=== PATIENT | female | born 1945 | race Caucasian/White ===

== ENCOUNTER 2018-06-06 17:33 | Inpatient (IN) | payer OTHER ==
[~2018-06-06] VITALS: Ht 157.5 cm; Wt 61.1 kg
--- NOTE | ~2018-06-06 | HC ---
[facility] [place] [address] CONSULTATION Name: KAYLEEN US MARY Room #: 210-P ADM IN M.R.#: [id number] Admission: 06/06/18 ������������������ Attend Phys: Bulmaro Estrada MD Discharge: ������������������ Date of : 41 Report #: [id number] THIS REPORT FOR: //name// CC: FAM unknown Bulmaro Estrada DATE OF SERVICE: 06/07/2018 NEPHROLOGY CONSULTATION REASON FOR CONSULTATION: Rise in creatinine. HISTORY OF PRESENT ILLNESS: This 72-year-old patient has a history of serendipitously discovered left renal atrophy with apparent prior documentation of a normal left kidney previously. She has had worsening and difficult hypertension, volume overload and rising serum creatinine, which was 1.3 in 02/2017. It has gradually risen up to 3.1 in the office and 3.7 here today. She saw her product designer earlier this week. With the rise in creatinine, her torsemide was decreased, she developed increasing shortness of breath, orthopnea, and chest tightness. She came to the Emergency Room, was found to have congestive heart failure and accelerated hypertension. This was treated successfully and acutely, but her creatinine criss from 2.9 to 3.7 overnight with lowering of blood pressure from 232/[address] down to 133/64 currently. This morning, she is breathing much more comfortably. She has been suffering some from headache as well. HOME MEDICATIONS: As listed include lisinopril 40 mg daily, torsemide 20 mg daily, metoprolol 25 mg at bedtime, aspirin 81 mg daily. PAST MEDICAL HISTORY: Is that of a severely fractured right ankle, which required surgery and hardware. No other surgeries. SOCIAL HISTORY: No cigarettes. No alcohol. 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 REVIEW OF SYSTEMS: GENERAL: She has been feeling poorly. EYES: Vision has been okay. ENT: Hearing okay. Swallows okay. ENDOCRINE: No diabetes or thyroid disease. RESPIRATORY: She has had the progressive shortness of air as mentioned. CARDIAC: She has had the chest tightness. No history of cardiac disease or palpitations. GASTROINTESTINAL: No nausea, vomiting or diarrhea. GENITOURINARY: No dysuria, hematuria or renal stones. MUSCULOSKELETAL: She has had quite a bit of trouble with low back pain and has [facility] [address] [place] [address] CONSULTATION Name: KAYLEEN US MARY Room #: 210-P [facility] IN .R.#: [id number] Admission: 06/06/18 ������������������ Attend Phys: Bulmaro Estrada MD Discharge: ������������������ Date of : 43 Report #: [id number] not been undergoing physical therapy for that. NEUROLOGIC: She has had headaches of late. No seizure, syncope or stroke. She has had a little bit of tingling in her toes. PSYCHIATRIC: No depression or anxiety. PHYSICAL EXAMINATION: GENERAL: This is a reasonably comfortable appearing patient giving a reasonably good history. General appearance is relatively comfortable. SKIN: Shows no skin lesions. SKELETAL: Shows no abnormalities of the joints. HEENT: Extraocular movements are full. Vision intact. Hearing intact. Mucous membranes are moist. Tongue, buccal mucosa are benign. NECK: Supple without carotid bruits. CHEST: Clear to auscultation this morning. HEART: Regular without murmurs, gallops or rubs. ABDOMEN: Soft and nontender. No bruits are heard. EXTREMITIES: Show a left femoral bruit. NEUROLOGIC: Grossly intact. LABORATORY AND DIAGNOSTIC DATA: The hemoglobin is 9.5, platelets 216. Sodium 135, potassium 5.7, chloride 101, bicarbonate 25, creatinine 3.7, BUN 90. ASSESSMENT: 1. Acute on chronic kidney disease. I suspect she likely has progressive renal artery stenosis to a solitary right kidney and that the only effective treatment will be to do limited angiogram with stent to that kidney and we will try to make arrangements for such. Blood pressure is currently a bit over controlled, but with her congestive heart failure somewhat appropriate and she has been diuresed down. We will adjust her medications a bit. At this time, likely the blood pressure will need to come up just a little bit anyway. 2. Acute on chronic renal failure, likely due to the progressive renal artery stenosis. 3. Flash pulmonary edema likely due to volume overload and accelerated hypertension, but converting enzyme inhibitors will need to be withheld if she indeed does have renal artery stenosis. 4. Low back syndrome. ��������������������������������������������� ���������������������������������������� By: ��������������������������������������������� 0827 1057 Sami Us MD /nt
[2018-06-06 17:34] VITALS: BP 234/128
[2018-06-06 18:01] LABS: ABSOLUTE NEUTROPHILS 9.2 thou/uL (1.4-8.2); BASOPHILS 0.3 % (0.0-2.0); EOSINOPHILS 2.8 % (0.0-3.0); HEMATOCRIT 31.9 % (37.0-47.0); LYMPHOCYTES 8.9 % (24.0-44.0); MCH 31.2 pg (26.0-34.0); MCHC 34.6 g/dL (28.0-37.0); MCV 90.3 fL (80.0-100.0); MONOCYTES 4.1 % (1.0-8.0); PLATELET COUNT 254 thou/uL (150-400); POLYS 83.9 % (36.0-66.0); RBC 3.53 mil/uL (4.20-5.00); RDW 14.5 % (10.5-14.5)
[2018-06-06 18:09] LABS: ANION GAP 10 mmol/L (7-16); BUN 85 mg/dL (7-18); CALCIUM 9.4 mg/dL (8.5-10.1); CHLORIDE 100 mmol/L (98-107); CO2 24 mmol/L (21-32); CREATININE 2.9 mg/dL (0.6-1.0); GLUCOSE 160 mg/dL (74-106); POTASSIUM 4.4 mmol/L (3.5-5.1); SODIUM 134 mmol/L (136-145)
[2018-06-06 18:15] LABS: APTT 24.2 Seconds (24.5-32.8); PROTIME 10.4 Seconds (9.3-11.4)
[2018-06-06 18:18] VITALS: BP 213/114
[2018-06-06 18:24] LABS: AMP/METHAMP Negative (Negative); BARBITURATES Negative (Negative); BENZODIAZEPINES Negative (Negative); COCAINE Negative (Negative); METHADONE Negative (Negative); OPIATES Negative (Negative); PCP Negative (Negative)
[2018-06-06 18:25] LABS: ALBUMIN 3.5 g/dL (3.4-5.0); MAGNESIUM 2.1 mg/dL (1.8-2.4); SGOT 15 U/L (15-37); SGPT 13 U/L (30-65); TOTAL BILIRUBIN 0.4 mg/dL (<0.1-1.0); TOTAL PROTEIN 6.7 g/dL (6.4-8.2); TROPONIN-I <0.06 ng/mL (<0.06)
[2018-06-06 19:21] VITALS: BP 190/75
[2018-06-06] MEDS ORDERED: ASPIR 8181 MG PO (19:24)
[2018-06-06] MEDS ORDERED: LISINOPRIL40 MG PO (19:25)
[2018-06-06] MEDS ORDERED: TORSEMIDE10 MG PO (19:26)
[2018-06-06] MEDS ORDERED: BUFFERED ASPIR325 MG PO (19:28)
[2018-06-06] MEDS ORDERED: KAPSPARGO SPRIN25 MG PO (19:30)
[2018-06-07] VITALS (8 sets, daily range): BP systolic 133–192; BP diastolic 64–86
--- NOTE | 2018-06-07 02:58 | NUR ---
PT. ARRIVED AT FLOOR AT SHIFT CHANGE; C/O GENERALIZED PAIN; PHYSICIAN AT BEDSIDE DURING BED SIDE REPORT; DURING ADMISSION ASSESSMENT; PT C/O HEADACHE; SHAKINESS OVER BODY; ST "I FEEL LIKE I AM GOING TO "; CRYING; ANXIOUS; C/O L. SIDE CHEST PAIN, ARM AND LEG; ST. DOES NOT KNOW HOW TO DESCRIBE THE PAIN; SBP ON THE 190'S; CLIENT ADVOCATE NOTIFIED; ORDERS RECEIVED; HYDROLYZED GIVEN; PT. REMAINED SAYING "I DO NOT WANT TO "; ASKED THE REASON THAT MAKES HER THING SHE MIGHT ; ST "I DO NOT KNOW"; FRIEND AT THE BED SIDE ST. "SHE [PT] USUALLY THINKS THE SAME AT HOME; ASKED IF NEED SOMETHING TO SLEEP; ST. "NO I DO NOT WANT TO SLEEP, I WANT TO STAY AWAKE ALL NIGHT"; ASKED IF NEED SOMETHING TO RELAX; ST. "I DO NOT WANT TO TAKE MORE MEDICATION"; ADMISSION ASSESSMENT FINISHED IT; EDUCATED ABOUT THE BENEFITS OF RESTIND DURING THE NIGHT; SBP RE-ASSESSED AROUND 2200; SBP 185; PT. REQUESTED MEDICATION TO HELP RELAX; CLIENT ADVOCATE NOTIFIED; ORDERS RECEIVED; MEDICATION GIVEN; RE-ASSESSMENT SBP 158; PT. SLEEPING; PER FRIEND AT BED SIDE PT HAS BEING RESTING; EXPLAINED TO CALL IF SOMETHING IS NEEDED; FRIEND ST. UNDERSTANDING; TROPONIN 0.15; CLIENT ADVOCATE NOTIFIED; ORDERS RECEIVED; ASSESSMENT CHARGED; FOLLOWING POC; MONITORING; WILL PASS ON REPORT.
[2018-06-07 05:46] LABS: HEMATOCRIT 28.2 % (37.0-47.0); HEMOGLOBIN 9.5 gm/dL (12.0-15.0); MCH 30.8 pg (26.0-34.0); MCHC 33.8 g/dL (28.0-37.0); MCV 91.1 fL (80.0-100.0); RBC 3.09 mil/uL (4.20-5.00); RDW 14.1 % (10.5-14.5); WBC 5.5 thou/uL (4.0-11.0)
[2018-06-07 06:01] LABS: CALCIUM 9.1 mg/dL (8.5-10.1); CREATININE 3.7 mg/dL (0.6-1.0); MAGNESIUM 2.4 mg/dL (1.8-2.4); TROPONIN-I 0.2 ng/mL (<0.06)
[2018-06-07 06:08] LABS: POTASSIUM 5.7 mmol/L (3.5-5.1)
--- NOTE | 2018-06-07 10:51 | EKG ---
[address] [address] ELECTROCARDIOGRAM REPORT Name: ABEBAKAYLEEN Room #: 210-P ADM IN M.R.#: [id number] ������������������ Admission: 06/06/18 ������������������ Attend Phys: Bulmaro Estrada MD Discharge: ������������������ Date of : 41 Report #: [id number] ����������������������������������������������������������������� [id number] THIS REPORT FOR: //name// [facility] ED Test Date: 2018-06-06 Test Time: 17:30:42 Pat Name: KAYLEEN US Department: Room: 210 Gender: F Sample Tester: RUTH : 1945 Requested By: Vince Middleton Order Number: [id number] MD: Memo Soto Measurements Intervals [place] Rate: 106 P: 65 HI: 169 QRS: -3 QRSD: 96 T: 121 QT: 356 QTc: 473 Interpretive Statements Sinus tachycardia Probable left atrial enlargement LVH with secondary repolarization abnormality Inferior infarct, old Anterior infarct, old No previous ECG available for comparison Electronically Signed On 06-07-2018 10:51:07 CDT by Memo Soto [email or web address] ��������������������������������������������� <ELECTRONICALLY SIGNED> ���������������������������������������� By: Memo Soto MD ��������������������������������������������� 06/07/18 1051 1730 1730 MD BASIA Anderson
--- NOTE | 2018-06-07 10:51 | EKG ---
[address] [address] ELECTROCARDIOGRAM REPORT Name: ABEBAKAYLEEN Room #: 210-P ADM IN M.R.#: [id number] ������������������ Admission: 06/06/18 ������������������ Attend Phys: Bulmaro Estrada MD Discharge: ������������������ Date of : 41 Report #: [id number] ����������������������������������������������������������������� [id number] THIS REPORT FOR: //name// [facility] ED Test Date: 2018-06-06 Test Time: 17:54:29 Pat Name: KAYLEEN US Department: Room: 210 P Gender: F Supervisor Delivery Department: RUTH : 1945 Requested By: Nidhi Tomlinson Order Number: [id number] MD: Memo Soto Measurements Intervals [place] Rate: 81 P: 65 WI: 188 QRS: -9 QRSD: 96 T: 101 QT: 394 QTc: 458 Interpretive Statements Sinus rhythm Probable left atrial enlargement LVH with secondary repolarization abnormality Inferior infarct, old Anterior infarct, old No previous ECG available for comparison Electronically Signed On 06-07-2018 10:51:20 CDT by Memo Soto [email or web address] ��������������������������������������������� <ELECTRONICALLY SIGNED> ���������������������������������������� By: Memo Soto MD ��������������������������������������������� 06/07/18 1051 1754 175 Memo Soto MD /[facility]
--- NOTE | 2018-06-07 10:52 | EKG ---
[address] [address] ELECTROCARDIOGRAM REPORT Name: KAYLEEN US MARY Room #: 210-P ADM IN M.R.#: [id number] ������������������ Admission: 06/06/18 ������������������ Attend Phys: Bulmaro Estrada MD Discharge: ������������������ Date of : 41 Report #: [id number] ����������������������������������������������������������������� [id number] THIS REPORT FOR: //name// [facility] Test Date: 2018-06-07 Test Time: 06:33:01 Pat Name: KAYLEEN US Department: Room: 210 P Gender: F Director Trial: : 1945 Requested By: Bulmaro Estrada Order Number: [id number] MD: Memo Soto Measurements Intervals [place] Rate: 76 P: 60 [place]: 174 QRS: 3 QRSD: 95 T: 94 QT: 410 QTc: 462 Interpretive Statements Sinus rhythm Anterior infarct, old No previous ECG available for comparison Electronically Signed On 06-07-2018 10:52:34 CDT by Memo Soto [email or web address] ��������������������������������������������� <ELECTRONICALLY SIGNED> ���������������������������������������� By: Memo Soto MD ��������������������������������������������� 06/07/18 1052 0633 0633 Memo Soto MD /EPI
[2018-06-08 04:40] LABS: PHOSPHORUS 5.1 mg/dL (2.5-4.9); POTASSIUM 5.3 mmol/L (3.5-5.1)
[2018-06-08 04:41] LABS: HEMATOCRIT 25.7 % (37.0-47.0); HEMOGLOBIN 8.8 gm/dL (12.0-15.0); MCH 31.2 pg (26.0-34.0); MCHC 34.3 g/dL (28.0-37.0); MCV 90.9 fL (80.0-100.0); RBC 2.82 mil/uL (4.20-5.00); WBC 5.6 thou/uL (4.0-11.0)
[2018-06-08 04:45] VITALS: BP 184/86
[2018-06-08 08:00] VITALS: BP 200/86
--- NOTE | 2018-06-08 08:31 | NUR ---
ASSESSMENTS CHARTED. PATIENT IS SCHEDULED FOR AN ARTERIOGRAM RENAL STENT TODAY.
[2018-06-08 12:00] VITALS: BP 173/75
--- NOTE | 2018-06-08 12:39 | 2DMMODE ---
[facility] [address] [place] [address] 2 D/M-MODE ECHOCARDIOGRAM Name: ABEBAKAYLEEN MARY Room #: 210-P ADM IN .R.#: [id number] ������������� Admission: 06/06/18 ������������� Attend Phys: Bulmaro Estrada MD Discharge: ��� ������������� ��� Date of : 41 Date of Service: 06/08/18 1239 �� Report #: [id number] �������� ��������������������������������������������[id number] THIS REPORT FOR: //name// APPROVED REPORT Study performed: 06/08/2018 11:34:23 EXAM: Comprehensive 2D, Doppler, and color-flow Echocardiogram Patient Location: In-Patient Room #: 210 Status: routine BSA: 1.69 HR: 73 bpm BP: 200/86 mmHg Rhythm: NSR Other Information Study Quality: Adequate Indications Congestive Heart Failure CAD Hypertension/HDD 2D Dimensions RVDd: 38.18 mm IVSd: 13.82 (7-11mm) LVOT Diam: 18.76 (18-24mm) LVDd: 34.68 mm PWd: 15.23 (7-11mm) Ascending Ao: 27.03 (22-36mm) LVDs: 20.08 (25-40mm) Aortic Root: 30.83 mm IVC: 21.00 mm Volumes Left Atrial Volume (Systole) Single Plane 4CH: 68.52 mL Single Plane 2CH: 41.17 mL LA ESV Index: 35.00 mL/m2 Aortic Valve AoV Peak Carmelo.: 1.42 m/s AO Peak Gr.: 8.08 mmHg Mitral Valve E/A Ratio: 0.8 MV Decel. Time: 221.63 ms MV E Max Carmelo.: 1.31 m/s [facility] [address] [place] [address] 2 D/M-MODE ECHOCARDIOGRAM Name: KAYLEEN US Room #: 210-P ADM IN ..#: [id number] ������������� Admission: 06/06/18 ������������� Attend Phys: Bulmaro Estrada MD Discharge: ��� ������������� ��� Date of : 41 Date of Service: 06/08/18 1239 �� Report #: [id number] �������� ��������������������������������������������[id number] MV A Carmelo.: 1.61 m/s MV PHT: 64.27 ms IVRT: 86.51 ms Pulmonary Valve PV Peak Carmelo.: 0.83 m/s PV Peak Gr.: 2.77 mmHg Pulmonary Vein P Vein S: 0.58 m/s P Vein A: 0.26 m/s P Vein D: 0.38 m/s P Vein A Dur.: 121.1 msec P Vein S/D Ratio: 1.53 Tricuspid Valve TR Peak Carmelo.: 3.23 m/s RAP Estimate: 5.00 mmHg TR Peak Gr.: 41.79 mmHg PA Pressure: 47.00 mmHg Left Ventricle The left ventricle is normal size. Moderate concentric left ventricular hypertrophy. The left ventricular systolic function is normal. The left ventricular ejection fraction is within the normal range. LVEF is 60-65%. Mild diastolic dysfunction is present (impaired relaxation pattern). Right Ventricle The right ventricle is normal size. The right ventricular systolic function is normal. Atria Left atrium is mildly dilated. Right atrium is mildly dilated. Aortic Valve Aortic valve is mildly calcified. Trace to mild aortic regurgitation. There is no aortic valvular stenosis. Mitral Valve Mild mitral annular calcification. Moderate to severe mitral regurgitation with an eccetric jet. No evidence of mitral valve stenosis. Tricuspid Valve The tricuspid valve is normal in structure. Mild tricuspid regurgitation. PAP is estimated at 47 mmHg. Pulmonic Valve [facility] [address] [place] [address] 2 D/M-MODE ECHOCARDIOGRAM Name: KAYLEEN US [facility] Room #: 210-P ADM IN M.R.#: [id number] ������������� Admission: 06/06/18 ������������� Attend Phys: Bulmaro Estrada MD Discharge: ��� ������������� ��� Date of : 41 Date of Service: 06/08/18 1239 �� Report #: [id number] �������� ��������������������������������������������[id number] Pulmonic valve is not well visualized. Great Vessels The aortic root is normal in size. IVC is upper limits of normal in size and collapses >50% with inspiration. Pericardium There is no pericardial effusion. <Conclusion> The left ventricle is normal size. LVEF is 60-65%. Left atrium is mildly dilated. Right atrium is mildly dilated. Aortic valve is mildly calcified. Trace to mild aortic regurgitation. There is no aortic valvular stenosis. Mild mitral annular calcification. Moderate to severe mitral regurgitation with an eccetric jet. The tricuspid valve is normal in structure. Mild tricuspid regurgitation. PAP is estimated at 47 mmHg. Pulmonic valve is not well visualized. There is no pericardial effusion. ��������������������������������������������� <ELECTRONICALLY SIGNED> ���������������������������������������� By: Jordan Stoddard MD ��������������������������������������������� 06/08/18 1239 1239 1239 Jordan Stoddard MD /INF
--- NOTE | 2018-06-08 15:12 | NUR ---
REMAINS NSR, BP REMAIN 170-200/75-80, PT GIVEN PRN IV HYDRALAZINE FOR INCREASE IN BP. LUNGS CLEAR,RA SAT IS 94%. PT AWAITING REMAL ANGIOGRAM WITH POTENTIAL RENAL ARTERY STENOSIS. WILL CONTINUE TO MONITER AND CARE FOR PTPER PLAN OF CARE
[2018-06-08 16:00] VITALS: BP 170/70
[2018-06-09] VITALS: BP 106/31
[2018-06-09 03:59] LABS: ALBUMIN 3.2 g/dL (3.4-5.0); CALCIUM 9.4 mg/dL (8.5-10.1); CREATININE 3.7 mg/dL (0.6-1.0); PHOSPHORUS 5.5 mg/dL (2.5-4.9)
[2018-06-09 04:11] VITALS: BP 110/51
[2018-06-09 04:27] LABS: POTASSIUM 5.2 mmol/L (3.5-5.1)
--- NOTE | 2018-06-09 06:31 | NUR ---
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 REPORT FROM POST PROCEDURE WAS THAT THE MINXX CLOSURE DID NOT HOLD AND MANUAL PRESSURE NEEDED TO BE HELD. EVIDENCE OF HEMATOMA IN GROIN AREA. DRESSING IS CLEAN, DRY, INTACT. OFF BEDREST AT 0300. NEW IV IN LEFT HAND. FALL PRECAUTIONS IN PLACE.
[2018-06-09 08:00] VITALS: BP 109/46
[2018-06-09 08:15] LABS: CHOLESTEROL 208 mg/dL (<200); HDL CHOLESTEROL 58 mg/dL (>40); LDL CHOLESTEROL 130 mg/dL (<100); TC:HDL 3.6 Ratio (Not establshd); TRIGLYCERIDE 104 mg/dL (<150); VLDL 21 mg/dL (<40)
[2018-06-09 16:00] VITALS: BP 128/47
--- NOTE | 2018-06-09 16:28 | NUR ---
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 She resides at home alone and has son in [place]. Discussed post acute care. Patient strongly wants to return home. She reports she is very very tired today she is unsure why so tired and feels she will work better with therapy in am. She plans to discuss with her son who will be here in am.
--- NOTE | 2018-06-09 18:47 | NUR ---
ASSUMED CARE OF PT AT SHIFT CHANGE. ASSESSMENTS CHARTED. MEDS GIVEN PER MAY. PT ALERT AND ORIENTED. VSS, PT C/O ITCHING- HYDROCORTISONE CREAM GIVEN. DENIES CHEST PAIN. O2 SATS WNL ON ROOM AIR. L GROIN SITE CDI, NO HEMATOMA. MILD BRUISING STILL PRESENT-- NO CHANGE FROM THIS AM. PT WORKED WITH PHYSICAL THERAPY THIS SHIFT, ABLE TO WALK SOME, NOT MUCH. PT HAS ANKLE BRACE THAT SON WILL BRING IN AM. PT DENIES CONCERNS AT THIS TIME. WILL CONT TO MONITOR AND FOLLOW POC.
[2018-06-09 20:29] VITALS: BP 127/51
--- NOTE | 2018-06-10 01:48 | NUR ---
ASSESSMENTS CHARTED. PATIENT WANTS TO KNOW WHEN SHE WILL GET TO GO HOME. WALKED TO BATHROOM AND BACK TO BED WITH WALKER AND STANDBY ASSIST. PATIENT WASHED UP IN THE BATHROOM INDEPENDENTLY. FALL PRECAUTIONS IN PLACE.
[2018-06-10 04:34] LABS: ALBUMIN 3.6 g/dL (3.4-5.0); CALCIUM 9.5 mg/dL (8.5-10.1); PHOSPHORUS 3.4 mg/dL (2.5-4.9); POTASSIUM 4.5 mmol/L (3.5-5.1)
[2018-06-10 04:36] LABS: CREATININE 2.5 mg/dL (0.6-1.0)
[2018-06-10 05:30] VITALS: BP 153/56
[2018-06-10 08:34] VITALS: BP 153/54
[2018-06-10] MEDS ORDERED: LIPITOR10 MG PO (09:20)
--- NOTE | 2018-06-10 10:38 | NUR ---
met with patient to discuss dc planning. Patient reports plan for home at dc. She is agreeable to HH if ordered. She has no recommendations for HH agency. Verified address, pcp Dr Sharon Bates. requested [facility] review.
[2018-06-10 11:30] VITALS: BP 153/54
[2018-06-10] MEDS ORDERED: CLOPIDOGREL75 MG PO (11:44)
[2018-06-10] MEDS ORDERED: CARVEDILOL3.125 MG PO (11:44)
[2018-06-10 12:20] VITALS: BP 172/60
[2018-06-10 12:55] VITALS: BP 153/54
--- NOTE | 2018-06-10 13:59 | NUR ---
[facility] accepting of patient plan home today.
--- NOTE | 2018-06-10 19:45 | NUR ---
ASSUMED CARE OF PT AT 0700. PT A&OX4, UP WITH CANE/WALKER. PT HAD HIGH BLOOD PRESSURE AND SCHEDULED BLOOD PRESSURE MEDS GIVEN. PT WAS SINUS RHYTHM ON THE MONITOR. PT HAD HURTADO REMOVED AND WAS ABLE TO URINATE AFTERWARDS. PT CONSTIPATED BUT DID NOT WANT ORDERED SUPOSITORY. PT AND SON COMMUNICATED UNDERSTANDING OF ALL DISCHARGE ORDERS, MEDS AND FOLLOW UP APPTS. PT GIVEN ANGIOGRAM WOUND CARE AND RENAL STENOSIS EDUCATION. IV AND TELE REMOVED. PT STATED SHE HAD ALL BELONGINGS. DISCHARGED HOME WITH HOME HEALTH.
[2018-06-11] MEDS ORDERED: LISINOPRIL40 MG PO (13:42)
--- NOTE | 2018-06-12 08:16 | HC ---
[facility] [place] [address] CONSULTATION Name: ABEBAKAYLEENDAVE HERNANDEZ Room #: 210-P [place] IN M.R.#: [id number] Admission: 06/06/18 ������������������ Attend Phys: Bulmaro Estrada MD Discharge: 06/10/18 ������������������ Date of : 41 Report #: [id number] THIS REPORT FOR: //name// CC: FAM unknown Bulmaro Estrada DATE OF SERVICE: 06/06/2018 TYPE OF REPORT: Cardiology consultation. INDICATION: Shortness of breath. HISTORY OF PRESENT ILLNESS: This is a pleasant 72-year-old female with a history of hypertension, hypercholesterolemia and edema; presenting with shortness of breath. For the past 1 week, she has been feeling generalized weakness and started to develop mild dyspnea. She initially developed dyspnea with walking up a flight of stairs. Her symptoms persisted until last evening when it became more severe. This morning, her symptoms again recurred but became progressively worse. She did develop orthopnea. She denies any history of chest discomfort, diaphoresis, palpitations, fever, nausea or diarrhea. She felt chills and a cough when her breathing got worse. The EKG reveals sinus rhythm with Q-waves in leads V2-V4 in leads III and aVF, suggestive for prior infarct. The patient denies any prior cardiac history. ALLERGIES: STATINS. MEDICATIONS: Lisinopril 40 mg daily, aspirin 81 mg, torsemide 10 mg daily and metoprolol at bedtime. PAST MEDICAL HISTORY: Hypertension, hypercholesterolemia and edema. Develops weakness with Zocor and Lipitor. SOCIAL HISTORY: Denies tobacco use. FAMILY HISTORY: Negative for premature CAD. REVIEW OF SYSTEMS: A full 10-point review of systems performed. Only the pertinent positives and negatives are described in the HPI. PHYSICAL EXAMINATION: VITAL SIGNS: Blood pressure is 212/130 and heart rate is 84 beats per minute. GENERAL APPEARANCE: An elderly-appearing female in mild respiratory distress. HEENT: Normocephalic and atraumatic. Oral mucosa moist. NECK: Supple. LUNGS: Bibasilar crackles. CARDIAC: Regular rate and rhythm. S1 and S2 positive. A 1/6 systolic murmur. [facility] [address] [place] [address] CONSULTATION Name: KAYLEEN US Room #: 210-P [place] IN M.R.#: [id number] Admission: 06/06/18 ������������������ Attend Phys: Bulmaro Estrada MD Discharge: 06/10/18 ������������������ Date of : 41 Report #: [id number] ABDOMEN: Soft and nontender. EXTREMITIES: No cyanosis. Trace edema. NEUROLOGICAL: Alert and oriented x 3. RADIOLOGICAL DATA: ECG reveals sinus rhythm, LVH, Q-waves in V1 through V4 and lead III and aVF. LABORATORY VALUES: Pending. ASSESSMENT AND PLAN: 1. Respiratory failure, probably due to congestive heart failure. Check labs and initiate diuresis with IV Lasix 40 mg b.i.d. Recommend Garcia catheter for accurate count of output. We will need an echocardiogram. 2. Coronary artery disease/abnormal ECG, consistent with prior infarct. May have started earlier in the week. We will need an ischemic evaluation once her respiratory status has stabilized. Check troponin levels. Aspirin once a day. 3. Hypertension, elevated blood pressure, probably due to hypoxia. Recommend resumption of medications including lisinopril. Initiate Coreg. Consider IV nitro for the immediate period. 4. Hypercholesterolemia, intolerance to statin medications. Check lipid panel. May be a candidate for Repatha. 5. Edema, we will follow for now. ��������������������������������������������� <ELECTRONICALLY SIGNED> ���������������������������������������� By: Memo Soto MD ��������������������������������������������� 06/12/18 0816 1804 0301 Memo Soto MD /nt
== END 2018-06-10 14:16 | disposition home health service (06) | DRG 673 ==
LOC: ER 17:33 → 2N 18:01 → EROBS 18:01 → 2N 18:48 → ENTRNSPT 06-10 13:59 → EDTRNSPTSTS 06-10 14:01 → 2N 06-10 14:16
PROVIDERS: Emergency Medicine; Hospitalist; Internal Medicine Nephrology; Nurse Practitioner Adult Health; ADMIT Internal Medicine
PROC: 04793DZ Dilation of Right Renal Artery with Intraluminal Device, Percutaneous Approach (ICD-10-PCS; principal; 2018-06-08)
PROC: B4181ZZ Fluoroscopy of Bilateral Renal Arteries using Low Osmolar Contrast (ICD-10-PCS; principal; 2018-06-08)
PROC: B41G1ZZ Fluoroscopy of Left Lower Extremity Arteries using Low Osmolar Contrast (ICD-10-PCS; 2018-06-08)
PROC: B4101ZZ Fluoroscopy of Abdominal Aorta using Low Osmolar Contrast (ICD-10-PCS; 2018-06-08)
PROC: B41F1ZZ Fluoroscopy of Right Lower Extremity Arteries using Low Osmolar Contrast (ICD-10-PCS; 2018-06-08)
DX: I70.1 Atherosclerosis of renal artery (principal); E43 Unspecified severe protein-calorie malnutrition; J81.0 Acute pulmonary edema; J96.90 Respiratory failure, unspecified, unspecified whether with hypoxia or hypercapnia; N17.9 Acute kidney failure, unspecified; I24.9 Acute ischemic heart disease, unspecified; I16.9 Hypertensive crisis, unspecified; I16.1 Hypertensive emergency; E87.1 Hypo-osmolality and hyponatremia; I13.0 Hypertensive heart and chronic kidney disease with heart failure and stage 1 through stage 4 chronic kidney disease, or unspecified chronic kidney disease; I50.9 Heart failure, unspecified; N18.9 Chronic kidney disease, unspecified; E78.00 Pure hypercholesterolemia, unspecified; I25.10 Atherosclerotic heart disease of native coronary artery without angina pectoris; T46.6X5A Adverse effect of antihyperlipidemic and antiarteriosclerotic drugs, initial encounter; F17.210 Nicotine dependence, cigarettes, uncomplicated; E87.5 Hyperkalemia; D64.9 Anemia, unspecified; I73.9 Peripheral vascular disease, unspecified; E78.5 Hyperlipidemia, unspecified; G89.29 Other chronic pain; M54.9 Dorsalgia, unspecified; Z60.2 Problems related to living alone; Z68.24 Body mass index [BMI] 24.0-24.9, adult; Z88.8 Allergy status to other drugs, medicaments and biological substances; Z88.2 Allergy status to sulfonamides; Z79.82 Long term (current) use of aspirin; Z79.899 Other long term (current) drug therapy
CPT/HCPCS: 10081

== ENCOUNTER 2018-06-11 08:58 | Inpatient (IN) | payer OTHER ==
[~2018-06-11] VITALS: Ht 157.5 cm; Wt 62.7 kg
[~2018-06-11 08:58] MED LIST: ASPIR 8181 MG PO; BUFFERED ASPIR325 MG PO; CARVEDILOL3.125 MG PO; CLOPIDOGREL75 MG PO; KAPSPARGO SPRIN25 MG PO; LIPITOR10 MG PO; LISINOPRIL40 MG PO; TORSEMIDE10 MG PO
[2018-06-11 08:59] VITALS: BP 77/37
[2018-06-11 09:38] LABS: ABSOLUTE NEUTROPHILS 5.5 thou/uL (1.4-8.2); BASOPHILS 0.3 % (0.0-2.0); EOSINOPHILS 2.7 % (0.0-3.0); HEMATOCRIT 24.4 % (37.0-47.0); HEMOGLOBIN 8.3 gm/dL (12.0-15.0); LYMPHOCYTES 11.5 % (24.0-44.0); MCH 30.9 pg (26.0-34.0); MCHC 34.1 g/dL (28.0-37.0); MCV 90.6 fL (80.0-100.0); MONOCYTES 9.5 % (1.0-8.0); PLATELET COUNT 239 thou/uL (150-400); RBC 2.69 mil/uL (4.20-5.00); RDW 14.1 % (10.5-14.5); WBC 7.2 thou/uL (4.0-11.0)
[2018-06-11 09:45] LABS: ANION GAP 9 mmol/L (7-16); BUN 46 mg/dL (7-18); CALCIUM 9.8 mg/dL (8.5-10.1); CHLORIDE 99 mmol/L (98-107); CO2 28 mmol/L (21-32); CREATININE 1.8 mg/dL (0.6-1.0); GLUCOSE 178 mg/dL (74-106); POTASSIUM 4.1 mmol/L (3.5-5.1); SODIUM 136 mmol/L (136-145)
[2018-06-11 09:53] LABS: TROPONIN-I <0.06 ng/mL (<0.06)
[2018-06-11 09:57] LABS: APTT 20.7 Seconds (24.5-32.8); PROTIME 10.7 Seconds (9.3-11.4)
[2018-06-11 10:58] VITALS: BP 196/68
[2018-06-11 11:28] VITALS: BP 160/72
[2018-06-11 12:48] VITALS: BP 194/79
[2018-06-11] MEDS ORDERED: LISINOPRIL40 MG PO (13:42)
--- NOTE | 2018-06-11 13:48 | NUR ---
Pt is a readmission from dc to home with hh yesterday. The pt is just now back from IR after have a procedure. Geoscientist visited with the pt and her son/van Sanabria at bedside. Pt is concerned that she is not ready to be at home alone and is too weak to take care of herself. SNF options discussed and [facility] listing provided. Pt is interested in [facility] and [facility] as she lives in [place] and they would be close to home. Her son is in agreement that a short snf stay for therapy is a good idea;especially given her readmission. [facility] also called with SNF recommendation. Dc digital media planner to fax referrals to the 3 snfs listed as we will need to start ins auth. PT/OT evals requested. Will follow.
--- NOTE | 2018-06-11 14:53 | NUR ---
FAXED REFERRAL TO [facility] SPOKE WITH LEELA IN ADM, SHE RECEIVED REFERRAL AND WILL REVIEW. DCP TO FOLLOW.
[2018-06-11 15:10] VITALS: BP 154/70
--- NOTE | 2018-06-11 20:02 | NUR ---
ASSUMED CARE OF PATIENT AT 1300 FROM ER (EP LAB) . PATIENT IS RESTING COMFORTABLY IN BED WITH HER SON AT THE BEDSIDE. PATIENT HAS LEFT GROIN AND UPPER THIGH SWELLING WITH ECCHYMOSIS. PATIENT STATES THAT THE AREA IS GREATLY IMPROVED AND FBI INVESTIGATOR IN COLOR. PATIENT DENIES PAIN IN THIS AREA. HOME MEDS RESTARTED AND VERIFIED WITH DR. OSCAR TO GIVEN ASA AND PLAVIX. REGULAR VITALS, GROIN SITE AND PEDAL PULSES CHECKED. CALL LIGHT WITHIN REACH. CONTINUE WITH POC.
[2018-06-11 20:11] VITALS: BP 100/55
[2018-06-11 22:47] LABS: URINE BILIRUBIN NEGATIVE (Negative); URINE BLOOD NEGATIVE (Negative); URINE CLARITY CLEAR; URINE COLOR YELLOW; URINE GLUCOSE-RANDOM* NEGATIVE (Negative); URINE KETONES NEGATIVE (Negative); URINE LEUKOCYTES-REFLEX NEGATIVE (Negative); URINE NITRITE-REFLEX NEGATIVE (Negative); URINE PROTEIN (DIPSTICK) NEGATIVE (Negative); URINE SPECIFIC GRAVITY 1.015 (1.005-1.035); URINE UROBILINOGEN 0.2 E.U./dl (0.2-1.0)
[2018-06-12 00:33] VITALS: BP 138/42
[2018-06-12 04:41] VITALS: BP 154/65
[2018-06-12 05:11] LABS: ABSOLUTE NEUTROPHILS 5.5 thou/uL (1.4-8.2); BASOPHILS 0.3 % (0.0-2.0)
[2018-06-12 05:16] LABS: EOSINOPHILS 1.7 % (0.0-3.0); LYMPHOCYTES 14.7 % (24.0-44.0); MCH 30.9 pg (26.0-34.0); MCV 90.9 fL (80.0-100.0); MONOCYTES 11.5 % (1.0-8.0); PLATELET COUNT 180 thou/uL (150-400); POLYS 71.8 % (36.0-66.0); RBC 2.07 mil/uL (4.20-5.00); RDW 14.1 % (10.5-14.5); WBC 7.7 thou/uL (4.0-11.0)
[2018-06-12 05:26] LABS: CALCIUM 8.7 mg/dL (8.5-10.1); CREATININE 1.9 mg/dL (0.6-1.0); MAGNESIUM 1.6 mg/dL (1.8-2.4); POTASSIUM 4.4 mmol/L (3.5-5.1)
[2018-06-12 05:29] LABS: HEMOGLOBIN 6.4 gm/dL (12.0-15.0)
[2018-06-12 05:30] LABS: HEMATOCRIT 18.8 % (37.0-47.0)
[2018-06-12 07:25] VITALS: BP 140/57; BP 160/60
--- NOTE | 2018-06-12 08:14 | EKG ---
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: : 1945 Requested By: Nidhi Tomlinson Order Number: [id number] MD: Luke Luna Measurements Intervals [place] Rate: 70 P: 63 ME: 149 QRS: 24 QRSD: 90 T: 96 QT: 409 QTc: 442 Interpretive Statements Sinus rhythm Probable LVH with secondary repol abnrm Anterior ST elevation, probably due to LVH Compared to ECG 06/07/2018 06:33:01 no significant change was found Electronically Signed On 06-12-2018 8:14:12 CDT by Luke Luna [email or web address] ��������������������������������������������� <ELECTRONICALLY SIGNED> ���������������������������������������� By: Luke Luna MD, [facility] ��������������������������������������������� 06/12/18 0814 0908 0908 Luke Luna MD, [facility] /EPI
[2018-06-12 12:07] LABS: HEMATOCRIT 24.5 % (37.0-47.0); MCH 30.5 pg (26.0-34.0); MCHC 34.1 g/dL (28.0-37.0); MCV 89.5 fL (80.0-100.0); RBC 2.74 mil/uL (4.20-5.00); RDW 14.2 % (10.5-14.5)
[2018-06-12 12:08] LABS: HEMOGLOBIN 8.4 gm/dL (12.0-15.0)
--- NOTE | 2018-06-12 12:08 | NUR ---
[facility] SNF CAN ACCEPT THE PT TODAY AND THEY HAVE REC'D INS AUTH THIS MORNING. PT AND SON UPDATED AT BEDSIDE AND AGREEABLE TO THE DC PLAN. DC THIS AFTERNOON ANTICIPATED PENDING THE FINAL ORDERS. DC SALES REPRESENTATIVE AIRCRAFT TO FAX DC ORDERS TO THE SNF AND FINALIZE W/C VAN TRANSPORT. CHART COPY IN PROGRESS. NURSING TO CALL REPORT.
[2018-06-12] MEDS ORDERED: PROTONIX40 M1 PO (12:17)
[2018-06-12] MEDS ORDERED: TYLENOL325 MG PO (12:17)
[2018-06-12] MEDS ORDERED: NORCO 5-325 TA1 EACH PO (12:20)
[2018-06-12] MEDS ORDERED: LIPITOR10 MG PO (12:20)
[2018-06-12] MEDS ORDERED: LIVALO2 MG PO (12:25)
--- NOTE | 2018-06-12 13:40 | NUR ---
PT. DISCHARGING TODAY TODAY TO [facility]. FAXED DC ORDERS/SUMMARY TO FACILITY AND SPOKE WITH LEELA IN ADM. SHE RECEIVED DC ORDERS AND SET UP TIME OF TRANSPORT VIA WC VAN FOR 1515 TODAY. FAMILY NOTIFIED BY RN. UNIT NOTIFIED AND CHART COPY PER US. RN TO CALL REPORT TO [phone].
[2018-06-12 14:55] VITALS: BP 128/53
== END 2018-06-12 15:15 | DRG 299 ==
LOC: ER 08:58 → 2N 10:50 → EROBS 10:50 → 2N 12:33
PROVIDERS: Emergency Medicine; Nurse Practitioner; ADMIT Hospitalist
PROC: 3E053GC Introduction of Other Therapeutic Substance into Peripheral Artery, Percutaneous Approach (ICD-10-PCS; principal; 2018-06-11)
PROC: 6A750Z6 Ultrasound Therapy of Peripheral Vessels, Single (ICD-10-PCS; principal; 2018-06-11)
PROC: 30233N1 Transfusion of Nonautologous Red Blood Cells into Peripheral Vein, Percutaneous Approach (ICD-10-PCS; 2018-06-12)
DX: I72.4 Aneurysm of artery of lower extremity (principal); E43 Unspecified severe protein-calorie malnutrition; I13.0 Hypertensive heart and chronic kidney disease with heart failure and stage 1 through stage 4 chronic kidney disease, or unspecified chronic kidney disease; N17.9 Acute kidney failure, unspecified; N18.4 Chronic kidney disease, stage 4 (severe); M19.90 Unspecified osteoarthritis, unspecified site; I49.9 Cardiac arrhythmia, unspecified; I25.10 Atherosclerotic heart disease of native coronary artery without angina pectoris; E78.5 Hyperlipidemia, unspecified; I50.9 Heart failure, unspecified; I70.1 Atherosclerosis of renal artery; D64.9 Anemia, unspecified; I16.0 Hypertensive urgency; Z60.2 Problems related to living alone; M62.84 Sarcopenia; K21.9 Gastro-esophageal reflux disease without esophagitis; Z79.899 Other long term (current) drug therapy; Z79.82 Long term (current) use of aspirin; Z68.25 Body mass index [BMI] 25.0-25.9, adult; Z88.2 Allergy status to sulfonamides
CPT/HCPCS: 10194

== ENCOUNTER → 2018-11-18 | Outpatient (CLI) | payer OTHER ==
[~2018-11-18] VITALS: Ht 157.5 cm; Wt 65.3 kg
[~2018-11-18] MED LIST changes: +LIVALO2 MG PO; +NORCO 5-325 TA1 EACH PO; +PROTONIX40 M1 PO; +TYLENOL325 MG PO
[2018-11-18 07:43] VITALS: BP 203/85
[2018-11-18 07:45] LABS: HEMATOCRIT 36.1 % (37.0-47.0); MCH 31.1 pg (26.0-34.0); MCHC 33.4 g/dL (28.0-37.0); MCV 93.3 fL (80.0-100.0); RBC 3.87 mil/uL (4.20-5.00); RDW 13.6 % (10.5-14.5); WBC 7.5 thou/uL (4.0-11.0)
[2018-11-18 07:54] LABS: APTT 26.1 Seconds (24.5-32.8); PROTIME 10.1 Seconds (9.3-11.4)
[2018-11-18 08:02] LABS: CALCIUM 9.9 mg/dL (8.5-10.1); CREATININE 1.7 mg/dL (0.6-1.0); POTASSIUM 3.6 mmol/L (3.5-5.1)
== END | disposition home or self-care (01) ==
LOC: SPEC 06:52
PROVIDERS: Nuclear Medicine Nuclear Cardiology
DX: I70.211 Atherosclerosis of native arteries of extremities with intermittent claudication, right leg (principal); I70.1 Atherosclerosis of renal artery; I15.0 Renovascular hypertension; I13.0 Hypertensive heart and chronic kidney disease with heart failure and stage 1 through stage 4 chronic kidney disease, or unspecified chronic kidney disease; N18.9 Chronic kidney disease, unspecified; I50.20 Unspecified systolic (congestive) heart failure; I25.2 Old myocardial infarction; E78.5 Hyperlipidemia, unspecified; Z98.890 Other specified postprocedural states; Z79.899 Other long term (current) drug therapy; Z88.2 Allergy status to sulfonamides; Z88.8 Allergy status to other drugs, medicaments and biological substances; Z79.82 Long term (current) use of aspirin

== ENCOUNTER 2019-05-10 08:18 | Emergency (ER) | payer OTHER ==
[~2019-05-10] VITALS: Ht 157.5 cm; Wt 70.3 kg
[2019-05-10 08:43] LABS: ABSOLUTE NEUTROPHILS 4.7 thou/uL (1.4-8.2); BASOPHILS 0.2 % (0.0-2.0); HEMOGLOBIN 12.4 gm/dL (12.0-15.0); LYMPHOCYTES 13.7 % (24.0-44.0); MCH 31.2 pg (26.0-34.0); MCHC 32.7 g/dL (28.0-37.0); MCV 95.5 fL (80.0-100.0); MONOCYTES 8.5 % (1.0-8.0); PLATELET COUNT 251 thou/uL (150-400); POLYS 74.6 % (36.0-66.0); RBC 3.98 mil/uL (4.20-5.00); RDW 12.8 % (10.5-14.5); WBC 6.3 thou/uL (4.0-11.0)
[2019-05-10 08:57] LABS: ANION GAP 8 mmol/L (7-16); BUN 32 mg/dL (7-18); CALCIUM 9.2 mg/dL (8.5-10.1); CHLORIDE 96 mmol/L (98-107); CO2 27 mmol/L (21-32); CREATININE 1.4 mg/dL (0.6-1.0); GLUCOSE 121 mg/dL (74-106); POTASSIUM 3.9 mmol/L (3.5-5.1); SODIUM 131 mmol/L (136-145)
[2019-05-10 09:07] LABS: ALBUMIN 3.8 g/dL (3.4-5.0); LIPASE 213 U/L (73-393); SGOT 20 U/L (15-37); SGPT 22 U/L (30-65); TOTAL BILIRUBIN 0.5 mg/dL (<0.1-1.0); TROPONIN-I <0.06 ng/mL (<0.06)
[2019-05-10 09:23] LABS: URINE BILIRUBIN NEGATIVE (Negative); URINE BLOOD 2+ (Negative); URINE CLARITY CLEAR; URINE COLOR YELLOW; URINE GLUCOSE-RANDOM* NEGATIVE (Negative); URINE KETONES NEGATIVE (Negative); URINE LEUKOCYTES-REFLEX NEGATIVE (Negative); URINE NITRITE-REFLEX NEGATIVE (Negative); URINE PROTEIN (DIPSTICK) NEGATIVE (Negative); URINE UROBILINOGEN 0.2 E.U./dl (0.2-1.0)
[2019-05-10 09:58] LABS: SQUAMOUS 0-3 Few /LPF (0-3)
[2019-05-10 09:59] LABS: BACTERIA-REFLEX None Seen /HPF (None Seen); CASTS None Seen /LPF (None Seen); CRYSTALS None Seen /LPF (None Seen); URINE RBC 0-2 Rare /HPF (0-2); URINE WBC-REFLEX 0-5 Rare /HPF (0-5)
[2019-05-10] MEDS ORDERED: ZOFRAN4 MG PO (11:05)
[2019-05-10 11:30] VITALS: BP 175/63
== END 2019-05-10 11:34 | disposition home or self-care (01) ==
LOC: ER 08:18
PROVIDERS: Student in an Organized Health Care Education/Training Program
DX: R19.7 Diarrhea, unspecified (principal); R42 Dizziness and giddiness; I13.0 Hypertensive heart and chronic kidney disease with heart failure and stage 1 through stage 4 chronic kidney disease, or unspecified chronic kidney disease; I50.9 Heart failure, unspecified; N18.9 Chronic kidney disease, unspecified; Z88.2 Allergy status to sulfonamides; Z88.8 Allergy status to other drugs, medicaments and biological substances

== ENCOUNTER → 2019-11-11 | Outpatient (CLI) | payer OTHER ==
[~2019-11-11] MED LIST changes: +ZOFRAN4 MG PO
== END ==
LOC: SJCVCIMAG 07:41
PROVIDERS: ATTEND Nuclear Medicine Nuclear Cardiology
DX: I70.1 Atherosclerosis of renal artery (principal); R94.31 Abnormal electrocardiogram [ECG] [EKG]; R00.0 Tachycardia, unspecified; I49.49 Other premature depolarization; I73.9 Peripheral vascular disease, unspecified; I71.2 Thoracic aortic aneurysm, without rupture; I70.8 Atherosclerosis of other arteries; I11.0 Hypertensive heart disease with heart failure; I50.32 Chronic diastolic (congestive) heart failure; E78.00 Pure hypercholesterolemia, unspecified; Z95.828 Presence of other vascular implants and grafts; Z79.899 Other long term (current) drug therapy

== ENCOUNTER → 2019-11-26 | Outpatient (CLI) | payer OTHER | LOC: CAT 08:33 | PROVIDERS: ATTEND Internal Medicine Cardiovascular Disease | DX: Z13.6 Encounter for screening for cardiovascular disorders (principal); I25.10 Atherosclerotic heart disease of native coronary artery without angina pectoris; E78.00 Pure hypercholesterolemia, unspecified ==

== ENCOUNTER → 2020-08-15 | Outpatient (CLI) | payer OTHER | LOC: SJCVCIMAG 07:46 | PROVIDERS: ATTEND Nuclear Medicine Nuclear Cardiology | DX: I65.23 Occlusion and stenosis of bilateral carotid arteries (principal); I70.203 Unspecified atherosclerosis of native arteries of extremities, bilateral legs; I70.1 Atherosclerosis of renal artery; I77.9 Disorder of arteries and arterioles, unspecified; E78.00 Pure hypercholesterolemia, unspecified; N18.4 Chronic kidney disease, stage 4 (severe); I13.0 Hypertensive heart and chronic kidney disease with heart failure and stage 1 through stage 4 chronic kidney disease, or unspecified chronic kidney disease; I50.9 Heart failure, unspecified; M79.661 Pain in right lower leg; M79.662 Pain in left lower leg; Z87.891 Personal history of nicotine dependence; Z88.2 Allergy status to sulfonamides; Z79.899 Other long term (current) drug therapy; Z79.82 Long term (current) use of aspirin ==

== ENCOUNTER → 2020-08-23 | Outpatient (CLI) | payer OTHER | LOC: SJCVCIMAG 09:58 | PROVIDERS: ATTEND Internal Medicine Cardiovascular Disease | DX: I08.0 Rheumatic disorders of both mitral and aortic valves (principal); R94.31 Abnormal electrocardiogram [ECG] [EKG]; R93.1 Abnormal findings on diagnostic imaging of heart and coronary circulation; I13.0 Hypertensive heart and chronic kidney disease with heart failure and stage 1 through stage 4 chronic kidney disease, or unspecified chronic kidney disease; I50.32 Chronic diastolic (congestive) heart failure; N18.4 Chronic kidney disease, stage 4 (severe); R60.9 Edema, unspecified; E78.00 Pure hypercholesterolemia, unspecified; I73.9 Peripheral vascular disease, unspecified; Z95.820 Peripheral vascular angioplasty status with implants and grafts; Z98.61 Coronary angioplasty status; Z88.2 Allergy status to sulfonamides; Z88.8 Allergy status to other drugs, medicaments and biological substances; Z79.82 Long term (current) use of aspirin; Z79.899 Other long term (current) drug therapy; Z82.49 Family history of ischemic heart disease and other diseases of the circulatory system ==

== ENCOUNTER 2021-02-25 10:44 | Inpatient (IN) | payer OTHER ==
[~2021-02-25] VITALS: Ht 160 cm; Wt 70.3 kg
[2021-02-25 10:45] VITALS: BP 174/98
[2021-02-25] MEDS ORDERED: PRINIVIL40 MG PO (11:07)
[2021-02-25] MEDS ORDERED: FAMOTIDINE40 MG PO (11:08)
[2021-02-25] MEDS ORDERED: CINNAMON500 MG PO (11:09)
[2021-02-25] MEDS ORDERED: CO Q-10100 M1 PO (11:09)
[2021-02-25 11:36] LABS: ABSOLUTE NEUTROPHILS 17.3 thou/uL (1.4-8.2); BASOPHILS 0.2 % (0.0-2.0); EOSINOPHILS 1.5 % (0.0-3.0); HEMATOCRIT 35.3 % (37.0-47.0); HEMOGLOBIN 11.2 gm/dL (12.0-15.0); LYMPHOCYTES 3.2 % (24.0-44.0); MCH 32.3 pg (26.0-34.0); MCHC 31.9 g/dL (28.0-37.0); MCV 101.2 fL (80.0-100.0); MONOCYTES 3.5 % (1.0-8.0); PLATELET COUNT 302 thou/uL (150-400); POLYS 91.6 % (36.0-66.0); RBC 3.49 mil/uL (4.20-5.00); RDW 13.9 % (10.5-14.5); WBC 18.9 thou/uL (4.0-11.0)
[2021-02-25 11:49] LABS: CALCIUM 9.2 mg/dL (8.5-10.1); CREATININE 1.2 mg/dL (0.6-1.0); POTASSIUM 4.9 mmol/L (3.5-5.1)
[2021-02-25 11:57] LABS: ALBUMIN 3.6 g/dL (3.4-5.0); TOTAL BILIRUBIN 0.6 mg/dL (0.2-1.0); TOTAL PROTEIN 7.1 g/dL (6.4-8.2)
[2021-02-25 12:15] LABS: BE(vivo) -5.2 mmol/L (-2 to +3); HCO3 19.2 mmol/L (22.0-26.0); PCO2 33.5 mmHg (35.0-45.0); PO2 57.3 mmHg (80.0-100.0); pH 7.375 (7.360-7.450); sO2 89.5 % (92.0-98.0)
[2021-02-25 14:34] LABS: URINE BILIRUBIN NEGATIVE (Negative); URINE BLOOD TRACE (Negative); URINE CLARITY CLEAR; URINE COLOR YELLOW; URINE GLUCOSE-RANDOM* NEGATIVE (Negative); URINE KETONES TRACE (Negative); URINE LEUKOCYTES-REFLEX NEGATIVE (Negative); URINE NITRITE-REFLEX NEGATIVE (Negative); URINE PROTEIN (DIPSTICK) 1+ (Negative); URINE UROBILINOGEN 0.2 E.U./dl (0.2-1.0)
[2021-02-25 14:45] LABS: BACTERIA-REFLEX 1-9 Few /HPF (None Seen); CASTS None Seen /LPF (None Seen); CRYSTALS None Seen /LPF (None Seen); SQUAMOUS 0-3 Few /LPF (0-3); URINE RBC 1-2 Rare /HPF (NONE SEEN); URINE WBC-REFLEX 0-5 Rare /HPF (0-5)
--- NOTE | 2021-02-25 20:24 | NUR ---
REPORT FROM ABE KAUFFMAN, PT HAD AN INITIAL TROP [phone], REPEAT OF [phone], DR. WIGGINS WAS CALLED. DR. WIGGINS STATED THAT HE DID NOT WANT ANYMORE REPEAT LABS ON THIS AND WOULD ADDRESS IT ON FRIDAY.
[2021-02-26] VITALS (7 sets, daily range): BP systolic 113–151; BP diastolic 50–84
--- NOTE | 2021-02-26 04:24 | NUR ---
PATIENT ADMITTED FROM ER VIA WHEELCHAIR AND 2L NC. SHE IS AAOX4 CALM AND COOPERATIVE. SHE IS ABLE TO TRANSFER FROM THE WHEELCHAIR TO HER BED WITH MINIMAL ASSISTANCE. STATES THAT SHE IS NOT HAVING CHEST PAIN AT THIS TIME BUT DOES GET SHORT OF BREATH WITH EXERTION. PATIENT WAS IN ER SINCE FRIDAY AFTERNOON. SHE IS ABLE TO VOID ON HER OWN. STATES THAT SHE DOES HAVE THE FUNCTION OF ONLY HER R KIDNEY. NON SKID SOCKS ARE PLACED. VSS. ABDOMEN ROUND AND FIRM BUT STATES THAT SHE HAS BEEN HAVING SEVERAL BMS TODAY. NO S/S OF DISTRESS NOTED. WILL CONTINUE TO MONITOR FOR CHANGES IN STATUS.
[2021-02-26 05:07] LABS: HEMATOCRIT 30.5 % (37.0-47.0); HEMOGLOBIN 9.8 gm/dL (12.0-15.0); MCH 32.5 pg (26.0-34.0); MCHC 32.3 g/dL (28.0-37.0); MCV 100.8 fL (80.0-100.0); RBC 3.03 mil/uL (4.20-5.00); RDW 13.7 % (10.5-14.5); WBC 11.6 thou/uL (4.0-11.0)
[2021-02-26 05:09] LABS: CALCIUM 8.9 mg/dL (8.5-10.1); CREATININE 1.3 mg/dL (0.6-1.0); POTASSIUM 4.7 mmol/L (3.5-5.1)
--- NOTE | 2021-02-26 07:37 | EKG ---
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1945 Requested By: Everette Hawk Order Number: [id number] MD: Joe Benson Measurements Intervals [place] Rate: 114 P: 73 CT: 178 QRS: 1 QRSD: 93 T: 98 QT: 308 QTc: 425 Interpretive Statements Sinus tachycardia Nonspecific repol abnormality, lateral leads Artifact in lead(s) I,V1,V2 and baseline wander in lead(s) V3,V4 Compared to ECG 06/11/2018 09:08:45 Sinus rhythm no longer present Left ventricular hypertrophy no longer present ST (T wave) deviation no longer present Electronically Signed On 02-26-2021 7:37:04 CHIEF MEDIA OFFICER by Joe Benson [email or web address] <ELECTRONICALLY SIGNED> By: Joe Benson MD, FAC 02/26/21 0737 1057 1057 Joe Benson MD, [facility] /EPI
--- NOTE | 2021-02-26 14:12 | EKG ---
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 : 1945 Requested By: Mahogany Haley Order Number: [id number] MD: Joe Benson Measurements Intervals [place] Rate: 86 P: 52 WV: 151 QRS: 1 QRSD: 102 T: 57 QT: 406 QTc: 486 Interpretive Statements Sinus rhythm Inferior infarct, old Compared to ECG 02/25/2021 10:57:00 Myocardial infarct finding now present Sinus tachycardia no longer present Early repolarization no longer present Electronically Signed On 02-26-2021 14:11:56 PLANT MAINTENANCE MANAGER by Joe Benson [email or web address] <ELECTRONICALLY SIGNED> By: Joe Benson MD, [facility] 02/26/21 1411 100 Joe Benson MD, FACC /EPI
--- NOTE | 2021-02-26 14:21 | 2DMMODE ---
[facility] [place] [address] 2 D/M-MODE ECHOCARDIOGRAM Name: KAYLEEN US MARY Room #: 202-P ADM IN M.R.#: [id number] Admission: 02/25/21 Attend Phys: Kelly Garcia MD Discharge: Date of : 41 Report #: [id number] THIS REPORT FOR: cc: Sharon Bates MD,Memo Verduzco MD, MD ~ APPROVED REPORT Study performed: 02/26/2021 12:16:41 EXAM: Comprehensive 2D, Doppler, and color-flow Echocardiogram Patient Location: Bedside Room #: 202 Status: routine BSA: 1.72 HR: 76 bpm BP: 133/62 mmHg Rhythm: NSR Other Information Study Quality: Fair Indications Short of breath, elevated troponin/BNP. Hx: Elevated calcium score, diastolic HF, PVD. 2D Dimensions RVDd: 27.61 mm IVSd: 9.83 (7-11mm) LVDd: 33.36 mm PWd: 9.11 (7-11mm) LVDs: 23.42 (25-40mm) Left Atrium: 28.25 (27-40mm) Volumes Left Atrial Volume (Systole) Single Plane 4CH: 71.65 mL Single Plane 2CH: 50.58 mL LA ESV Index: 37.00 mL/m2 Aortic Valve AoV Peak Carmelo.: 1.65 m/s AO Peak Gr.: 10.93 mmHg LVOT Max P.68 mmHg LVOT Max V: 1.39 m/s [facility] [address] [place] [address] 2 D/M-MODE ECHOCARDIOGRAM Name: KAYLEEN US MARY Room #: 202-P [facility] IN .R.#: [id number] Admission: 02/25/21 Attend Phys: Kelly Garcia MD Discharge: Date of : 41 Report #: [id number] Mitral Valve E/A Ratio: 0.6 MV Decel. Time: 329.88 ms MV E Max Carmelo.: 0.59 m/s MV A Carmelo.: 1.05 m/s MV PHT: 95.67 ms IVRT: 86.51 ms Pulmonary Valve PV Peak Carmelo.: 0.88 m/s PV Peak Gr.: 3.11 mmHg Pulmonary Vein P Vein S: 0.61 m/s P Vein A: 0.37 m/s P Vein D: 0.31 m/s P Vein A Dur.: 93.4 msec P Vein S/D Ratio: 1.97 Tricuspid Valve TR Peak Carmelo.: 2.42 m/s RAP Estimate: 15.00 mmHg TR Peak Gr.: 24.00 mmHg PA Pressure: 39.00 mmHg Left Ventricle The left ventricle is normal size. There is normal LV segmental wall motion. Moderate basal septal hypertrophy is present. Left ventricular systolic function is hyperdynamic. (Peak LV gradient of 38mmHg). LVEF is 70%. Mild diastolic dysfunction is present (impaired relaxation pattern). Right Ventricle The right ventricle is normal size. The right ventricular systolic function is normal. Atria Left atrium is mildly dilated. The right atrium size is normal. Aortic Valve The aortic valve is normal in structure. Mild aortic regurgitation. There is no aortic valvular stenosis. Mitral Valve The mitral valve is normal in structure. Mild to moderate mitral regurgitation. Tricuspid Valve The tricuspid valve is normal in structure. Mild tricuspid [facility] [employer] [address] [place] [address] 2 D/M-MODE ECHOCARDIOGRAM Name: KAYLEEN SU MARY Room #: 202-P ADM IN M.R.#: [id number] Admission: 02/25/21 Attend Phys: Kelly Garcia MD Discharge: Date of : 41 Report #: [id number] regurgitation. Estimated PAP is 35-40mmHg. Pulmonic Valve Pulmonic valve is not well visualized. There is no pulmonic valvular regurgitation noted. Great Vessels The aortic root is normal in size. Ascending aorta is not well visualized. IVC is dilated and collapses <50% with inspiration. Pericardium There is no pericardial effusion. <Conclusion> The left ventricle is normal size. Left ventricular systolic function is hyperdynamic. Mild diastolic dysfunction is present (impaired relaxation pattern). The right ventricle is normal size. Left atrium is mildly dilated. Mild aortic regurgitation. Mild to moderate mitral regurgitation. Mild tricuspid regurgitation. Estimated PAP is 35-40mmHg. <ELECTRONICALLY SIGNED> By: Memo Soto MD 02/26/211420 20 20 Memo Soto MD /INF
--- NOTE | 2021-02-26 15:58 | NUR ---
PATIENT ADMITTED FOR NSTEMI AND HYPOXIA. CM REVIEWED CHART AND SPOKE WITH CARE TEAM. CM MET WITH PT THIS DAY. CM ROLE INTRODUCED. PT REPORTS SHE LIVES AT HOME BY HERSELF. SHE REPORTS SHE HAS 6 STEPS OUTSIDE THE HOME AND 6 STEPS INSIDE THE HOME. SHE REPORTS NO CONCERNS OR ISSUES WITH STAIRS. REPORTS SHE IS INDEP WITH ALL MOBILITY AND ADLS. SHE DOES REPORT SHE USES A WALING STICK WHEN WALKING LONG DISTANCES ON CONCRETE. PT REPORTS SHE WILL GO HOME ONCE MEDICALLY STABLE AND HOPING IT IS TODAY. NO CM INTERVENTIONS ARE INDICATED AT THIS TIME.
--- NOTE | 2021-02-26 19:36 | NUR ---
Pt was A&0x4, VS stable, afebrile throughout shift. Pt had Echocardiogram done; results pending. Pt reported feeling much better and able to breath better since starting furosemide therapy. Edema in lower legs is decreasing and lung sounds are less coarse. Pt continue to have a dry non-productive cough. Troponin continues to trend down. No current concerns. Continue to monitor.
[2021-02-27 05:06] VITALS: BP 137/53
[2021-02-27 05:11] LABS: ALBUMIN 2.6 g/dL (3.4-5.0); CALCIUM 8.6 mg/dL (8.5-10.1); CREATININE 1.5 mg/dL (0.6-1.0); POTASSIUM 4.4 mmol/L (3.5-5.1)
[2021-02-27 08:00] VITALS: BP 158/66
[2021-02-27 12:00] VITALS: BP 121/62
[2021-02-27 15:17] LABS: ABSOLUTE NEUTROPHILS 5.5 thou/uL (1.4-8.2); BASOPHILS 0.2 % (0.0-2.0); EOSINOPHILS 8.6 % (0.0-3.0); HEMATOCRIT 31.2 % (37.0-47.0); LYMPHOCYTES 13.6 % (24.0-44.0); MCH 32.3 pg (26.0-34.0); MCHC 32.2 g/dL (28.0-37.0); MCV 100.3 fL (80.0-100.0); PLATELET COUNT 231 thou/uL (150-400); POLYS 67.6 % (36.0-66.0); RBC 3.11 mil/uL (4.20-5.00); RDW 13.4 % (10.5-14.5); WBC 8.1 thou/uL (4.0-11.0)
[2021-02-27 16:30] VITALS: BP 142/60
--- NOTE | 2021-02-27 18:29 | NUR ---
Pt has been A&0x4, VS stable and afebrile throughout shift. Pt is scheduled for Cardiac Nuclear Stress Test 02/28/21 AM; 1700 carvedilol was held; pt will be NPO after midnight. Pt has a dry cough; mucinex helps for a couple of hours but cough comes back and is persistent; pt was advised to drink more fluids; MD was paged for possible order of throat lozenges - waiting for call back. Pt ambulated around unit with PT and ambulates to independtly. No current concerns. Continue to monitor.
[2021-02-27 20:06] VITALS: BP 148/56
[2021-02-28 02:56] LABS: ALBUMIN 2.8 g/dL (3.4-5.0); CALCIUM 8.8 mg/dL (8.5-10.1); CREATININE 1.7 mg/dL (0.6-1.0); POTASSIUM 4.2 mmol/L (3.5-5.1)
[2021-02-28 04:00] VITALS: BP 140/62
--- NOTE | 2021-02-28 05:03 | NUR ---
PATIENTS CARES WHERE ASSUMED AT SHIFT CHANGE. PATIENT WAS SITTING UP IN THE CHAIR AT THE BEGINING OF THIS SHIFT. PATIENT WAS ASSESSED AND MEDS WHERE PASSED. PATIENT REQUESTED HIS TRAZADONE AT ELEVEN OCLOCK. PATIENT CALMER THIS SHIFT OER LAST NIGHT. ROUNDS DONE. THE BEDIS IN A LOW AND LOCKED POSITION. THIS PATIENT MUST BE UP WITH TWO ASSISST.
--- NOTE | 2021-02-28 05:40 | NUR ---
PATIENTS CARES WHERE ASSUMED AT SHIFT CHANGE. PATIENT WAS ASSESSED AND MEDS WERE PASSED.PATIENT HAS BEEN NPO AFTER MIDNIGHT DUE TO A PROCEDURE THIS MORNING. PATIENT IS HOPEFULL THAT SHE WILL GET TO GO HOME AFTER HER TEST. ROUNDS WHERE DONE. THE BED IS IN A LOW AND LOCKED POSITION
[2021-02-28 07:10] VITALS: BP 148/71
[2021-02-28 11:32] VITALS: BP 153/71
--- NOTE | 2021-02-28 17:18 | NUR ---
THIS PATIENT WENT DOWN FOR A STRESS TEST THIS MORNING AND WAS OFF THE UNIT FOR SEVERAL HOURS. AFTER PATIENT RETURNED SHE STATED THE TEST WENT WELL, DENYING ANY COMPLAINTS. FAMILY WAS IN ROOM THIS AFTERNOON PATIENT APPEARED TO BE IN GOOD SPIRITS.
[2021-02-28 19:40] VITALS: BP 148/64
[2021-03-01 04:03] LABS: CALCIUM 8.8 mg/dL (8.5-10.1); CREATININE 2.1 mg/dL (0.6-1.0); PHOSPHORUS 4.6 mg/dL (2.5-4.9); POTASSIUM 4.3 mmol/L (3.5-5.1)
[2021-03-01 04:40] VITALS: BP 135/60
--- NOTE | 2021-03-01 05:46 | NUR ---
pt resting quietly after prn tylenol given for villalta, vss, unable to go back to sleep after lab came by, up to br to void, hopes to go home today. will con't to monitor per ppoc.
[2021-03-01 08:10] VITALS: BP 121/73
[2021-03-01] MEDS ORDERED: METOPROLOL SUCC50 MG PO (08:27)
[2021-03-01 12:02] VITALS: BP 121/73
[2021-03-01] MEDS ORDERED: CEFUROXIME500 MG PO (12:23)
[2021-03-01] MEDS ORDERED: MUCINEX600 MG PO (12:23)
--- NOTE | 2021-03-01 13:31 | NUR ---
PT IS AXOX4, PLEASANT; VSS, AFEBRILE, SR ON THE MONITOR. PT SON AT THE BEDSIDE. PT HAD NM STRESS TEST YESTERDAY, CARDIOLOGY HAS SIGNED OFF. NEPHROLOGY SIGNED OFF TODAY. DR DAVIS CONSULTED. PT TO D/C THIS AFTERNOON. D/C EDUCATION PROVIDED. PT AND SON COMMUNICATED UNDERSTANDING OF RX AND FOLLOW UP APPT. PT D/C TO HOME WITH SON VIA PERSONAL VEHICLE. NO CONCERNS AT THIS TIME.
== END 2021-03-01 13:44 | disposition home or self-care (01) | DRG 871 ==
LOC: ER 10:44 → EROBS 15:09 → 2N 15:09
PROVIDERS: Emergency Medicine; Hospitalist; Nurse Practitioner Family; ADMIT Internal Medicine; ATTEND Internal Medicine
DX: A41.9 Sepsis, unspecified organism (principal); I21.4 Non-ST elevation (NSTEMI) myocardial infarction; J96.01 Acute respiratory failure with hypoxia; J18.9 Pneumonia, unspecified organism; G92.8 Other toxic encephalopathy; I50.33 Acute on chronic diastolic (congestive) heart failure; I13.0 Hypertensive heart and chronic kidney disease with heart failure and stage 1 through stage 4 chronic kidney disease, or unspecified chronic kidney disease; N17.9 Acute kidney failure, unspecified; N39.0 Urinary tract infection, site not specified; E87.1 Hypo-osmolality and hyponatremia; I25.110 Atherosclerotic heart disease of native coronary artery with unstable angina pectoris; Z20.822 Contact with and (suspected) exposure to COVID-19; R77.8 Other specified abnormalities of plasma proteins; N18.9 Chronic kidney disease, unspecified; M19.90 Unspecified osteoarthritis, unspecified site; I73.9 Peripheral vascular disease, unspecified; N26.1 Atrophy of kidney (terminal); Z60.2 Problems related to living alone; R53.81 Other malaise; D53.9 Nutritional anemia, unspecified; M81.0 Age-related osteoporosis without current pathological fracture; E78.5 Hyperlipidemia, unspecified; I08.0 Rheumatic disorders of both mitral and aortic valves; Z88.2 Allergy status to sulfonamides; Z88.8 Allergy status to other drugs, medicaments and biological substances; Z82.49 Family history of ischemic heart disease and other diseases of the circulatory system; Z83.42 Family history of familial hypercholesterolemia; Z95.820 Peripheral vascular angioplasty status with implants and grafts; Z79.82 Long term (current) use of aspirin; Z79.899 Other long term (current) drug therapy; Z23 Encounter for immunization
CPT/HCPCS: 10081

== ENCOUNTER → 2021-03-21 | Outpatient (CLI) | payer OTHER ==
[~2021-03-21] MED LIST changes: +CEFUROXIME500 MG PO; +CINNAMON500 MG PO; +CO Q-10100 M1 PO; +FAMOTIDINE40 MG PO; +METOPROLOL SUCC50 MG PO; +MUCINEX600 MG PO; +PRINIVIL40 MG PO
== END ==
LOC: SJCVCIMAG 07:47
PROVIDERS: ATTEND Internal Medicine Cardiovascular Disease
DX: R94.31 Abnormal electrocardiogram [ECG] [EKG] (principal); I70.222 Atherosclerosis of native arteries of extremities with rest pain, left leg; I70.1 Atherosclerosis of renal artery; I13.0 Hypertensive heart and chronic kidney disease with heart failure and stage 1 through stage 4 chronic kidney disease, or unspecified chronic kidney disease; I50.32 Chronic diastolic (congestive) heart failure; N18.4 Chronic kidney disease, stage 4 (severe); E78.00 Pure hypercholesterolemia, unspecified; R60.9 Edema, unspecified; M19.90 Unspecified osteoarthritis, unspecified site; I72.9 Aneurysm of unspecified site; M62.84 Sarcopenia; I34.0 Nonrheumatic mitral (valve) insufficiency; Z79.82 Long term (current) use of aspirin; Z79.899 Other long term (current) drug therapy; Z82.49 Family history of ischemic heart disease and other diseases of the circulatory system; Z88.2 Allergy status to sulfonamides; Z88.8 Allergy status to other drugs, medicaments and biological substances